=== PATIENT | male | born 1940 | race Caucasian/White ===

== ENCOUNTER 2022-08-10 13:58 | Emergency (ER) | payer MEDICARE, OTHER ==
[~2022-08-10] VITALS: Ht 167.6 cm; Wt 90.7 kg
--- NOTE | 2022-08-10 14:05 | NUR ---
RECEIVED PT TRANSFER FROM [facility] FOR EVALUATION DRY SCARE
--- NOTE | 2022-08-10 15:35 | NUR ---
SEEN BY PROVIDER
[2022-08-10] MEDS ORDERED: diphenhydrAMINE HCL 25 MG CAPSULE PO ONE (16:00)
--- NOTE | 2022-08-10 16:00 | NUR ---
ASLEEPY ON AND OFF
[2022-08-10 16:32] LABS: BASOPHILS # (AUTO) 0.1 K/uL (0.0-0.2); BASOPHILS % (AUTO) 0.8 % (0.0-2.0); EOSINOPHILS % (AUTO) 2.5 % (0.0-6.0); HEMATOCRIT 39 % (39-51); LYMPHOCYTES # (AUTO) 1.8 K/uL (0.8-4.8); LYMPHOCYTES % (AUTO) 21.5 % (20.0-44.0); MEAN CORPUSCULAR HGB CONC 33 g/dl (31.0-36.0); MEAN CORPUSCULAR VOLUME 94 fL (80-96); MONOCYTES % (AUTO) 11.8 % (2.0-12.0); NEUTROPHILS # (AUTO) 5.3 K/uL (1.8-8.9); NEUTROPHILS % (AUTO) 63.4 % (43.0-81.0); PLATELET COUNT (AUTO) 190 K/uL (150-450); RED BLOOD CELL COUNT(AUTO) 4.15 MIL/uL (4.5-6.0); WHITE BLOOD COUNT (AUTO) 8.3 K/uL (4.3-11.0)
[2022-08-10 16:57] LABS: ALBUMIN 2.7 g/dL (3.4-5.0); BILIRUBIN,DIRECT 0.1 mg/dL (0.0-0.2); BILIRUBIN,TOTAL 0.2 mg/dL (0.2-1.0); CALCIUM, SERUM 8.9 mg/dL (8.5-10.1); CREATININE 1.1 mg/dL (0.6-1.3); POTASSIUM 4.3 mmol/L (3.5-5.1); TOTAL PROTEIN, SERUM 7.4 g/dL (6.4-8.2)
[2022-08-10] MEDS ORDERED: diphenhydrAMINE HCL 25 MG CAPSULE ONE (16:57)
[2022-08-10] MEDS ORDERED: PRED20TA PO (17:24)
--- NOTE | 2022-08-10 17:47 | NUR ---
DOPPLER STUDY ON both upper arm
--- NOTE | 2022-08-10 18:25 | NUR ---
[facility] CALLED FOR TRANSPORT ETA 60 MINS.
--- NOTE | 2022-08-10 19:39 | NUR ---
HAND OFF JANUSZ BRYAN
--- NOTE | 2022-08-10 20:08 | NUR ---
TRANSPORTATION ARRIVED, REPORT GIVEN, PT BEING TRANSPORTED TO FACILITY ([facility]) IN STABLE CONDITION
[2022-08-10 20:09] VITALS: BP 127/66
== END 2022-08-10 20:10 | disposition home or self-care (01) ==
LOC: ER 14:00
DX: D69.2 Other nonthrombocytopenic purpura (principal); R21 Rash and other nonspecific skin eruption; I10 Essential (primary) hypertension; Z79.899 Other long term (current) drug therapy
CPT/HCPCS: 99284; 93970; 85025; 80048; 80076; 36415; 85730; Q0163